=== PATIENT | female | born 1965 | race Caucasian/White ===

== ENCOUNTER → 2016-08-11 | Outpatient (REF) | payer BC ==
[2016-08-11 13:25] LABS: FREE T4 0.88 NG/DL (0.76-1.46)
[2016-08-12 09:52] LABS: THYROID PEROXIDASE ANTIBODY < 28.0 U/ML (<60.0)
== END ==
LOC: M LAB REF 12:21
PROVIDERS: ATTEND Dermatology
DX: Z01.84 Encounter for antibody response examination (principal)

== ENCOUNTER → 2017-06-06 | Outpatient (CLI) | payer BC | LOC: M RAD 12:56 | DX: Z12.31 Encounter for screening mammogram for malignant neoplasm of breast (principal) | CPT/HCPCS: 77067 ==

== ENCOUNTER 2017-11-04 11:04 | Emergency (ER) | payer BC ==
[2017-11-04] MEDS: predniSONE 20 MG TAB PO (11:47)
[2017-11-04 11:50] LABS: APPEARANCE, URINE HAZY (CLEAR); BACTERIA, URINE AUTO 1+ (NEGATIVE); BILIRUBIN, URINE AUTO NEGATIVE (NEGATIVE); BLOOD, URINE BLOOD NEGATIVE (NEGATIVE); COLOR, URINE YELLOW (YELLOW); GLUCOSE, URINE (UA) AUTO NEGATIVE (NEGATIVE); KETONE, URINE AUTO TRACE mg/dL (NEGATIVE); LEUKOCYTE ESTERASE, URINE AUTO NEGATIVE (NEGATIVE); MUCUS, URINE SMALL (NEGATIVE); NITRITE, URINE AUTO NEGATIVE (NEGATIVE); PROTEIN, URINE AUTO NEGATIVE (NEGATIVE); RBC, URINE AUTO 1 /HPF (0-3); SPECIFIC GRAVITY URINE AUTO 1.017 (1.002-1.035); SQUAMOUS EPITHELIAL CELL UR AU 3 /HPF (0-6); UROBILINOGEN, URINE AUTO 0.2 mg/dL (0.0-2.0); WBC, URINE AUTO 2 /HPF (0-3)
== END 2017-11-04 12:06 | disposition home or self-care (01) ==
LOC: M ED 11:04
DX: M54.5 Low back pain (principal)
CPT/HCPCS: 81001

== ENCOUNTER → 2018-01-19 | Outpatient (CLI) | payer BC | LOC: M RAD 17:49 | DX: M75.42 Impingement syndrome of left shoulder (principal) | CPT/HCPCS: 73221 ==

== ENCOUNTER → 2019-02-08 | Outpatient (CLI) | payer BC ==
[~2019-02-08] MED LIST: CYCL10TA PO; NAPR-885; PRED20TA PO
[2019-02-08 11:47] LABS: BASO % 0.4 % (0.0-1.0); EOS # 0.1 10^3/uL (0.0-0.5); EOS % 1.1 % (0.0-3.0); HEMATOCRIT 41.2 % (36.0-47.0); HEMOGLOBIN 13.7 g/dl (12.0-15.5); LYMPH # 1.6 10^3/uL (1.5-5.0); LYMPH % 30.9 % (24.0-44.0); MEAN CORPUSCULAR HEMOGLOBIN 33.1 pg (27.0-33.0); MEAN CORPUSCULAR HGB CONC 33.3 g/dl (32.0-36.5); MEAN CORPUSCULAR VOLUME 99.5 fl (80.0-96.0); MONO # 0.4 10^3/uL (0.0-0.8); MONO % 7.3 % (0.0-5.0); NEUTROPHILS # 3.2 10^3/uL (1.5-8.5); NEUTROPHILS % 60.1 % (36.0-66.0); PLATELET COUNT, AUTOMATED 242 10^3/uL (150-450); RED BLOOD COUNT 4.14 10^6/uL (4.00-5.40); WHITE BLOOD COUNT 5.3 10^3/uL (4.0-10.0)
[2019-02-08 12:32] LABS: ALBUMIN 4.1 GM/DL (3.2-5.2); ALT/SGPT 25 U/L (12-78); BILIRUBIN,TOTAL 0.6 MG/DL (0.2-1.0); BLOOD UREA NITROGEN 10 MG/DL (7-18); CALCIUM LEVEL 9.2 MG/DL (8.5-10.1); CARBON DIOXIDE LEVEL 25 MEQ/L (21-32); CHLORIDE LEVEL 101 MEQ/L (98-107); CHOLESTEROL LEVEL 248 MG/DL (<200); CHOLESTEROL RISK RATIO 1.893 (<5); CREATININE FOR GFR 0.74 MG/DL (0.55-1.30); GLOMERULAR FILTRATION RATE > 60.0 (>51); GLUCOSE, FASTING 84 MG/DL (70-100); HDL CHOLESTEROL 131 MG/DL (>40); LDL CHOLESTEROL 105 MG/DL (<100); NON-HDL-C 117 MG/DL; POTASSIUM SERUM 4.6 MEQ/L (3.5-5.1); SODIUM LEVEL 136 MEQ/L (136-145); TOTAL 25(OH) VITAMIN D 36.4 NG/ML (30.0-100.0); TOTAL PROTEIN 6.6 GM/DL (6.4-8.2); TRIGLYCERIDES LEVEL 60 MG/DL (<150)
== END ==
LOC: M LAB 10:50
PROVIDERS: ATTEND Family Medicine
DX: Z13.220 Encounter for screening for lipoid disorders (principal); Z13.21 Encounter for screening for nutritional disorder; Z12.11 Encounter for screening for malignant neoplasm of colon; Z80.0 Family history of malignant neoplasm of digestive organs

== ENCOUNTER → 2019-04-08 | Outpatient (CLI) | payer BC ==
--- NOTE | 2019-04-08 16:11 | REPMRS ---
Patient History The patient states she has not had a clinical breast exam in over a year. No known family history of cancer. Digital Mammo Screening Bilat: April 08, 2019 - Exam #: [id number] Bilateral CC and MLO view(s) were taken. Technologist: Amy Brown, Technologist Prior study comparison: June 06, 2017, bilateral digital mammo screening bilat performed at [facility]. February 03, 2015, bilateral digital mammo screening bilat performed at [facility]. February 02, 2011, digital bilateral screening mammo performed at [facility]. FINDINGS: The breast tissue is heterogeneously dense. This may lower the sensitivity of mammography. There is a moderate amount of heterogeneously dense fibroglandular tissue which is fairly symmetric. There is no interval development of dominant mass, architectural distortion, or grouped microcalcification typical of malignancy. There has been no change in the appearance of the mammogram from the prior studies. 3-D tomosynthesis shows no additional findings. Assessment: BI-RADS/ACR category 1 mammogram. Negative Mammogram. Recommendation Routine screening mammogram of both breasts in 1 year (for women over age 40). This patient's Lifetime Breast Cancer RIsk is estimated at 8.9 %. This mammogram was interpreted with the aid of an FDA-approved computer-aided dectection system. Electronically Signed By: Lamine Alan MD 04/08/19 [id number]
== END ==
LOC: M RAD 13:57
PROVIDERS: ATTEND Family Medicine
DX: Z12.31 Encounter for screening mammogram for malignant neoplasm of breast (principal)

== ENCOUNTER 2021-01-09 06:43 | Inpatient (IN) | payer BC ==
[~2021-01-09] VITALS: Ht 157.5 cm; Wt 67.3 kg
[~2021-01-09 06:43] MED LIST changes: +CYCL-707 PO; -CYCL10TA PO
[2021-01-09] MEDS ORDERED: DOXY-350 PO (06:50)
[2021-01-09] MEDS ORDERED: methylPREDNISolone 125MG 2ML VIAL IV ONE (09:20)
[2021-01-09] MEDS ORDERED: AMPICILLIN SOD/SULBACTAM SOD 3 GM in D5W MINI-BAG PLUS 100 ML IV ONE (09:40)
[2021-01-09 09:55] LABS: BASO % 0.3 % (0.0-1.0); EOS % 0.5 % (0.0-3.0); HEMOGLOBIN 14.8 g/dl (12.0-15.5); LYMPH # 1.2 10^3/uL (1.5-5.0); LYMPH % 19.6 % (24.0-44.0); MEAN CORPUSCULAR HEMOGLOBIN 32.5 pg (27.0-33.0); MEAN CORPUSCULAR HGB CONC 33.6 g/dl (32.0-36.5); MEAN CORPUSCULAR VOLUME 96.7 fl (80.0-96.0); MONO # 0.4 10^3/uL (0.0-0.8); MONO % 7.2 % (2.0-8.0); NEUTROPHILS # 4.3 10^3/uL (1.5-8.5); NEUTROPHILS % 71.9 % (36.0-66.0); PLATELET COUNT, AUTOMATED 286 10^3/uL (150-450); RED BLOOD COUNT 4.55 10^6/uL (4.00-5.40)
[2021-01-09] MEDS ORDERED: ISOVUE-370 76% 100ML VIAL As Ordered ONE (10:05)
[2021-01-09 10:19] LABS: RHEUMATOID FACTOR QUANT < 10.0 IU/ML (<15.0)
[2021-01-09 10:23] LABS: ERYTHROCYTE SEDIMENTATION RATE 14 mm/hr (0-30)
--- NOTE | 2021-01-09 10:50 | REP ---
INDICATION: L outter ear redness/swelling, redness L side neck. COMPARISON: None. TECHNIQUE: Helical scanning is acquired following the intravenous injection of 75 mL of Isovue 370. 3 mm axial images re-formatted. Coronal and sagittal MPR images are generated. FINDINGS: The visualized intracranial structures are unremarkable. No intraorbital abnormality is appreciated. There is diffuse thickening of the left ear cartilage consistent with chondritis. The external auditory canal appears patent. the middle ear the middle ear cavity is aerated. No petrous bone abnormality is seen on either side. There is no evidence of mastoid air cell opacification to suggest mastoiditis. The other visualized paranasal sinuses are clear. No abscess is appreciated. There is a normal-sized superior preauricular lymph node at the superior margin of the left parotid gland. No abnormal fluid collection is seen. There is some mild subcutaneous and dermal edema in the infra-auricular and retroauricular soft tissues. Submandibular glands are normal and symmetric. The right parotid gland is unremarkable. Glottic and subglottic airway are unremarkable. Epiglottis is normal in appearance. Thyroid lobes are normal and symmetric. The lung apices are clear. No vascular abnormality is appreciated. No bony destructive lesion is seen. IMPRESSION: Diffuse swelling of the auricular cartilage on the left consistent with chondritis. No abscess seen. Question small reactive pre-auricular lymph node. No evidence of mastoiditis. <Electronically signed by Lamine Alan > 01/09/21 [id number]
[2021-01-09 11:40] LABS: RSV AMPLIFICATION NEGATIVE (NEGATIVE)
[2021-01-09] MEDS ORDERED: IBUP200T45 PO (12:52)
[2021-01-09] MEDS ORDERED: HOME MED LIST COMPLETE! XX SCH (12:55)
[2021-01-09] MEDS ORDERED: ACETAMINOPHEN TAB 650MG DOSE (2X325MG) PO PRN (13:25)
[2021-01-09] MEDS ORDERED: NS 1,000 ML IV ONE (13:25)
[2021-01-09] MEDS: KETOROLAC 30 MG/ML 1ML VIAL IV SCH ×2 (14:28→20:16)
[2021-01-09] MEDS ORDERED: SENOKOT S TAB PO PRN (14:50)
[2021-01-09] MEDS ORDERED: PERCOCET 5MG/325MG TAB PO PRN ×2 (14:50)
[2021-01-09] MEDS ORDERED: MOM 30ML SUSPENSION UDC PO PRN (14:50)
[2021-01-09] MEDS ORDERED: MORPHINE 4 MG/ML 1ML VIAL/SYRINGE (J2270) IV PRN (14:50)
[2021-01-09 16:13] VITALS: BP 137/78
[2021-01-09] MEDS: NS 1,000 ML IV SCH ×2 (17:59→23:25)
[2021-01-09] MEDS: AMPICILLIN SOD/SULBACTAM SOD 3 GM in D5W MINI-BAG PLUS 100 ML IV SCH ×2 (18:00→21:39)
[2021-01-09] MEDS: methylPREDNISolone 125MG 2ML VIAL IV SCH (18:01)
--- NOTE | 2021-01-09 18:31 | HPEPDOC ---
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 She had complained of pruritus in the left ear and had been scratching this, and has been using her colleagues [employer] without cleaning the ear tips. When she awakened on morning her left ear was swollen like "a cauliflower, 'with pain redness along the left side of her jaw into the left side of the neck without purulent drainage, fever, hoarse voice, dysphagia, dyne aphasia. She self medicated with doxycycline but has not seen a significant improvement. Patient presented to the emergency room minor treatment today for evaluation. She was afebrile, without leukocytosis, bandemia, chills. CT of the neck shows left auricular cartilage consistent with chondritis without mastoiditis. Hospitalist was asked to admit the patient for left otitis externa, chondritis, and left facial cellulitis. 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 Denies recreational drug use or tobacco use Has 1-2 alcoholic drinks nightly FAMILY HISTORY: Noncontributory ALLERGIES: Please see below. REVIEW OF SYSTEMS: 10 point system negative aside from positive findings on HPI HOME MEDICATIONS: Please see below. PHYSICAL EXAMINATION: VITAL SIGNS: See below GENERAL APPEARANCE: No distress HEENT: Left pinna cartilage erythematous with edema and tenderness with erythematous streak along the left side of the face mandible and left neck No stridor, pain of the left ear when lifted. Tympanic membrane clear. Moist mucous membranes CARDIOVASCULAR: S1-S2 regular rate rhythm LUNGS: Clear to auscultation no wheezing rales or rhonchi ABDOMEN: Positive bowel sounds soft nontender nondistended no rebound or guarding EXTREMITIES: No cyanosis clubbing or pitting edema LABORATORY DATA: See below. IMAGING: See below MICROBIOLOGY: Please see below. 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 She had complained of pruritus in the left ear and had been scratching this, and has been using her colleagues [employer] without cleaning the ear tips. When she awakened on morning her left ear was swollen like "a cauliflower, 'with pain redness along the left side of her jaw into the left side of the neck without purulent drainage, fever, hoarse voice, dysphagia, dyne aphasia. She self medicated with doxycycline but has not seen a significant improvement. Patient presented to the emergency room minor treatment today for evaluation. She was afebrile, without leukocytosis, bandemia, chills. CT of the neck shows left auricular cartilage consistent with chondritis without mastoiditis. Hospitalist was asked to admit the patient for left otitis externa, chondritis, and left facial cellulitis. Left otitis externa, chondritis, left neck and facial cellulitis -Continue IV Unasyn, steroids -As needed pain medications, anti-inflammatories, antiemetics as needed -Bowel regimen as needed for constipation due to opioids -Ciprodex otic solution twice daily -ENT consulted Diet: 2 g sodium DVT prophylaxis: Compression stockings Disposition: Discharge in 1 to 2 days Vital Signs Vital Signs Date Time Temp Pulse Resp B/P (MAP) Pulse Ox O2 Delivery O2 Flow Rate FiO2 01/09/21 16:13 97.5 67 18 137/78 (97) 99 Room Air Laboratory Data Labs 24H Laboratory Tests 2 01/09/21 09:27: Immature Granulocyte % (Auto) 0.5, Neutrophils (%) (Auto) 71.9H, Lymphocytes (%) (Auto) 19.6L, Monocytes (%) (Auto) 7.2, Eosinophils (%) (Auto) 0.5, Basophils (%) (Auto) 0.3, Neutrophils # (Auto) 4.3, Lymphocytes # (Auto) 1.2L, Monocytes # (Auto) 0.4, Eosinophils # (Auto) 0.0, Basophils # (Auto) 0.0, Nucleated Red Blood Cells % (auto) 0.0, Erythrocyte Sedimentation Rate 14, C-Reactive Protein, Quantitative 0.60H, Rheumatoid Factor < 10.0 01/09/21 09:30: POC Glucose (Misc Panel) 110H, POC Sodium (Misc Panel) 138, POC Potassium (Misc Panel) 4.4, POC Chloride (Misc Panel) 101, POC Total CO2 (Misc Panel) 30.0H, POC Blood Urea Nitrogen (Misc Panel 8, POC Ionized Calcium (Misc Panel) 5.0, POC Creatinine (Misc Panel) 0.7, POC Hematocrit (Misc Panel) 44.0 01/09/21 10:47: Coronavirus (COVID-19)(PCR) NEGATIVE, Influenza Type A (RT-PCR) NEGATIVE, Influenza Type B (RT-PCR) NEGATIVE, Respiratory Syncytial Virus (PCR) NEGATIVE CBC/BMP Laboratory Tests 01/09/21 09:27 Microbiology Microbiology 01/09/21 Blood Culture, Received Pending 01/09/21 Blood Culture, Received Pending Home Medications Scheduled Ibuprofen (Ibu-200) 200 Mg Tablet, 600 MG PO DAILY Allergies Coded Allergies: No Known Drug Allergies (Verified Allergy, Unknown, 01/09/21) A-FIB/CHADSVASC A-FIB History Current/History of A-Fib/PAF?: No Age/Risk Factor Scoring CHADSVASC: CHADSVASC Response (Comments) Value Age Risk Factor Age < 65 years old 0 Gender Risk Factor Female 1 Hx of CHF No 0 Hx of HTN No 0 Hx of Stroke/TIA/or VTE No 0 Hx of Diabetes No 0 Hx of Vascular Disease No 0 Total 1 Treatment Treatment ordered: NONE FELIPE RAMÍREZ MD Jan 09, 2021 18:31
[2021-01-09] MEDS: CIPRODEX OTIC SUSP 7.5ML AS SCH (20:16)
[2021-01-09 21:21] VITALS: BP 147/86
[2021-01-10] MEDS: methylPREDNISolone 125MG 2ML VIAL IV SCH ×3 (02:00→18:16)
[2021-01-10] MEDS: KETOROLAC 30 MG/ML 1ML VIAL IV SCH ×4 (02:01→20:38)
[2021-01-10] MEDS: AMPICILLIN SOD/SULBACTAM SOD 3 GM in D5W MINI-BAG PLUS 100 ML IV SCH ×4 (04:14→21:40)
[2021-01-10] MEDS: NS 1,000 ML IV SCH ×2 (04:14→16:16)
[2021-01-10 06:00] VITALS: BP 108/70
[2021-01-10 08:52] LABS: BASO % 0.1 % (0.0-1.0); HEMATOCRIT 42.1 % (36.0-47.0); HEMOGLOBIN 14.1 g/dl (12.0-15.5); LYMPH # 0.9 10^3/uL (1.5-5.0); LYMPH % 6.3 % (24.0-44.0); MEAN CORPUSCULAR HGB CONC 33.5 g/dl (32.0-36.5); MEAN CORPUSCULAR VOLUME 95.5 fl (80.0-96.0); MONO # 0.6 10^3/uL (0.0-0.8); MONO % 3.8 % (2.0-8.0); NEUTROPHILS % 89.3 % (36.0-66.0); PLATELET COUNT, AUTOMATED 308 10^3/uL (150-450); RED BLOOD COUNT 4.41 10^6/uL (4.00-5.40); WHITE BLOOD COUNT 14.5 10^3/uL (4.0-10.0)
[2021-01-10 09:11] LABS: ERYTHROCYTE SEDIMENTATION RATE 8 mm/hr (0-30)
[2021-01-10 09:12] LABS: BLOOD UREA NITROGEN 10 MG/DL (7-18); CALCIUM LEVEL 9.1 MG/DL (8.5-10.1); CARBON DIOXIDE LEVEL 26 MEQ/L (21-32); CHLORIDE LEVEL 106 MEQ/L (98-107); CREATININE FOR GFR 0.69 MG/DL (0.55-1.30); GLOMERULAR FILTRATION RATE > 60.0 (>51); GLUCOSE, FASTING 137 MG/DL (70-100); POTASSIUM SERUM 4.1 MEQ/L (3.5-5.1); SODIUM LEVEL 139 MEQ/L (136-145)
[2021-01-10] MEDS: CIPRODEX OTIC SUSP 7.5ML AS SCH ×2 (09:21→20:38)
--- NOTE | 2021-01-10 09:32 | CR.PDOC ---
General Date of Consultation: Jan 10, 2021 Referring Provider: FELIPE RAMÍREZ MD Attending Physician: Honorio Boudreaux MD Consultation REASON FOR CONSULTATION/CHIEF COMPLAINT: Left ear swelling. 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 She is otherwise healthy. Last Monday she felt some cold-like symptoms and left-sided adenopathy. She has had a longstanding issue with left ear itchiness and notices an area of crusty irritation periodically right at the opening to the ear canal. She feels she was scratching at this area prior to developing the swelling. By her ear had become swollen and tender. She had some redness extending into the jaw area. And a little bit down the neck. Hearing was not affected there was no drainage. She has had no previous episodes of ear swelling. She has no known autoimmune condition.. ALLERGIES: Please see below. HOME MEDICATIONS: Please see below. PAST MEDICAL HISTORY: 1. None 2. . PAST SURGICAL HISTORY: 1. Knee 2. 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 HEENT: . CARDIOVASCULAR: . RESPIRATORY: . GENITOURINARY: . MUSCULOSKELETAL: . GASTROINTESTINAL: . SKIN: . NEUROLOGICAL: . PSYCHIATRIC: . ENDOCRINE: . HEMATOLOGIC/LYMPHATIC: . ALLERGIC/IMMUNOLOGIC: . PHYSICAL EXAMINATION: VITAL SIGNS: Please see below. GENERAL APPEARANCE: Alert oriented in no obvious distress. HEENT: Face and scalp appeared normal. Eyes were normal. Examination of the right ear was normal. Ear canal and tympanic membrane normal. Examination of the left ear revealed mild swelling over the cartilaginous portion of the auricle. Ear canal and tympanic membrane were completely normal. There was no discharge. Examination of the nose showed no abnormality externally. Nasal septum appears normal turbinates were not enlarged. Lips teeth and gums were normal. Tongue floor mouth posterior pharyngeal wall clear. Tonsils have been removed. Palpation of the neck reveals no significant adenopathy at this point.. RESPIRATORY: . CARDIOVASCULAR: . ABDOMEN: . EXTREMITIES: . NEUROLOGICAL: . PSYCHIATRIC: . LABORATORY DATA: Please see below. ASSESSMENT/PLAN: 1. I think Kelly most likely had an infectious cause for her ear canal swelling. I suspect that the dose of doxycycline was insufficient or incorrect for the bacterial infection. She has responded nicely to IV antibiotics and probably can go home today. I suspect the increased white count today versus yesterday secondary to the steroids. Also in the differential would be autoimmune perichondritis. If she fails to respond to recurs then she will need a rheumatology consult. We have encouraged her to refrain from scratching the ear and suggested some topical steroids if this is itchy which she could use 1-3 times a week. 2. . Vital Signs/I&O Vital Signs Date Time Temp Pulse Resp B/P (MAP) Pulse Ox O2 Delivery O2 Flow Rate FiO2 01/10/21 06:00 97.8 64 14 108/70 (83) 96 Room Air I&O- Last 24 Hours up to 6 AM 01/10/21 05:59 Intake Total 2710 ml Output Total 650 ml Balance 2060 ml Laboratory Data Labs 24H Laboratory Tests 2 01/09/21 09:27: Immature Granulocyte % (Auto) 0.5, Neutrophils (%) (Auto) 71.9H, Lymphocytes (%) (Auto) 19.6L, Monocytes (%) (Auto) 7.2, Eosinophils (%) (Auto) 0.5, Basophils (%) (Auto) 0.3, Neutrophils # (Auto) 4.3, Lymphocytes # (Auto) 1.2L, Monocytes # (Auto) 0.4, Eosinophils # (Auto) 0.0, Basophils # (Auto) 0.0, Nucleated Red Blood Cells % (auto) 0.0, Erythrocyte Sedimentation Rate 14, C-Reactive Protein, Quantitative 0.60H, Rheumatoid Factor < 10.0 01/09/21 09:30: POC Glucose (Misc Panel) 110H, POC Sodium (Misc Panel) 138, POC Potassium (Misc Panel) 4.4, POC Chloride (Misc Panel) 101, POC Total CO2 (Misc Panel) 30.0H, POC Blood Urea Nitrogen (Misc Panel 8, POC Ionized Calcium (Misc Panel) 5.0, POC Creatinine (Misc Panel) 0.7, POC Hematocrit (Misc Panel) 44.0 01/09/21 10:47: Coronavirus (COVID-19)(PCR) NEGATIVE, Influenza Type A (RT-PCR) NEGATIVE, Influenza Type B (RT-PCR) NEGATIVE, Respiratory Syncytial Virus (PCR) NEGATIVE 01/10/21 08:32: Immature Granulocyte % (Auto) 0.5, Neutrophils (%) (Auto) 89.3H, Lymphocytes (%) (Auto) 6.3L, Monocytes (%) (Auto) 3.8, Eosinophils (%) (Auto) 0.0, Basophils (%) (Auto) 0.1, Neutrophils # (Auto) 13.0H, Lymphocytes # (Auto) 0.9L, Monocytes # (Auto) 0.6, Eosinophils # (Auto) 0.0, Basophils # (Auto) 0.0, Nucleated Red Blood Cells % (auto) 0.0, Erythrocyte Sedimentation Rate 8, C-Reactive Protein, Quantitative 0.30, Anion Gap 7L, Glomerular Filtration Rate > 60.0, Calcium Level 9.1 CBC/BMP Laboratory Tests 01/09/21 09:27 01/10/21 08:32 Microbiology Microbiology 01/09/21 Blood Culture, Received Pending 01/09/21 Blood Culture, Received Pending Allergies Coded Allergies: No Known Drug Allergies (Verified Allergy, Unknown, 01/09/21) Home Medications Scheduled Ibuprofen (Ibu-200) 200 Mg Tablet, 600 MG PO DAILY, (Reported) Honorio Boudreaux MD Jan 10, 2021 09:32
--- NOTE | 2021-01-10 12:13 | IPNPDOC ---
Date Seen The patient was seen on 01/10/21. Progress Note SUBJECTIVE: decreased left ear canal pruritus on ciprodex. no f/c overnight. denies ear pain, hearing loss, vertigo. left neck LAD smaller w/o stridor, dysphagia, or odynophagia. "I feel a little better." PHYSICAL EXAMINATION: VITAL SIGNS: See below GENERAL APPEARANCE: No distress aaox 3 no cyanosis or pallor HEENT: no carotid bruits. EOMI Left pinna cartilage erythematous with edema and tenderness with less erythematous streak along the left side of the face mandible and left neck. cervical LAD left smaller today No stridor, pain of the left ear when lifted. Tympanic membrane clear. Moist mucous membranes CARDIOVASCULAR: S1-S2 regular rate rhythm LUNGS: Clear to auscultation no wheezing rales or rhonchi ABDOMEN: Positive bowel sounds soft nontender nondistended no rebound or guard ing EXTREMITIES: No cyanosis clubbing or pitting edema LABORATORY DATA: See below. IMAGING: See below MICROBIOLOGY: Please see below. 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 She had complained of pruritus in the left ear and had been scratching this, and has been using her colleagues [employer] without cleaning the ear tips. When she awakened on morning her left ear was swollen like "a cauliflower, 'with pain redness along the left side of her jaw into the left side of the neck without purulent drainage, fever, hoarse voice, dysphagia, dyne aphasia. She self medicated with doxycycline but has not seen a significant improvement. Patient presented to the emergency room minor treatment today for evaluation. She was afebrile, without leukocytosis, bandemia, chills. CT of the neck shows left auricular cartilage consistent with chondritis without mastoiditis. Hospitalist was asked to admit the patient for left otitis ex terna, chondritis, and left facial cellulitis. Left otitis externa, chondritis, left neck and facial cellulitis -Continue IV Unasyn, steroids -As needed pain medications, anti-inflammatories, antiemetics as needed -Bowel regimen as needed for constipation due to opioids -Ciprodex otic solution twice daily -ENT consulted Diet: 2 g sodium DVT prophylaxis: Compression stockings Disposition: Discharge in am VS, I&O, 24H, Fishbone Vital Signs/I&O Vital Signs Date Time Temp Pulse Resp B/P (MAP) Pulse Ox O2 Delivery O2 Flow Rate FiO2 01/10/21 06:00 97.8 64 14 108/70 (83) 96 Room Air I&O- Last 24 Hours up to 6 AM 01/10/21 06:00 Intake Total 3610 ml Output Total 1100 ml Balance 2510 ml Laboratory Data 24H LABS Laboratory Tests 2 01/10/21 08:32: Immature Granulocyte % (Auto) 0.5, Neutrophils (%) (Auto) 89.3H, Lymphocytes (%) (Auto) 6.3L, Monocytes (%) (Auto) 3.8, Eosinophils (%) (Auto) 0.0, Basophils (%) (Auto) 0.1, Neutrophils # (Auto) 13.0H, Lymphocytes # (Auto) 0.9L, Monocytes # (Auto) 0.6, Eosinophils # (Auto) 0.0, Basophils # (Auto) 0.0, Nucleated Red Blood Cells % (auto) 0.0, Erythrocyte Sedimentation Rate 8, Anion Gap 7L, Glomerular Filtration Rate > 60.0, Calcium Level 9.1, C-Reactive Protein, Quantitative 0.30 CBC/BMP Laboratory Tests 01/10/21 08:32 Microbiology Microbiology 01/09/21 Blood Culture - Preliminary, Resulted No growth after 24 hours . All specim... 01/09/21 Blood Culture - Preliminary, Resulted No growth after 24 hours . All specim... FELIPE RAMÍREZ MD Jan 10, 2021 12:13
[2021-01-10 14:00] VITALS: BP 121/78
[2021-01-10 22:00] VITALS: BP 127/81
[2021-01-11] MEDS: methylPREDNISolone 125MG 2ML VIAL IV SCH ×2 (01:41→08:41)
[2021-01-11] MEDS: KETOROLAC 30 MG/ML 1ML VIAL IV SCH ×3 (01:41→14:18)
[2021-01-11] MEDS: NS 1,000 ML IV SCH (03:12)
[2021-01-11] MEDS: AMPICILLIN SOD/SULBACTAM SOD 3 GM in D5W MINI-BAG PLUS 100 ML IV SCH ×3 (03:12→15:08)
[2021-01-11] MEDS ORDERED: CIPR7.5D2 AS (05:14)
[2021-01-11] MEDS ORDERED: AUGM875T28 PO (05:14)
[2021-01-11 06:00] VITALS: BP 120/75
[2021-01-11] MEDS: CIPRODEX OTIC SUSP 7.5ML AS SCH (09:20)
--- NOTE | 2021-01-11 10:08 | DSES ---
DISCHARGE SUMMARY DATE OF ADMISSION: 01/09/2021 DATE OF DISCHARGE: 01/11/2021 FA[employer] SALES ASSISTANT: Dr. Honorio Boudreaux, ENT surgeon PRIMARY DISCHARGE DIAGNOSIS: 1. Left ear otitis externa. 2. Left ear chondritis. 3. Left face and neck cellulitis. DISCHARGE MEDICATIONS: 1. Augmentin 875 p.o. b.i.d. 2. Ciprodex four drops b.i.d. for five days. 3. Ibuprofen 800 as needed for pain. DISCHARGE INSTRUCTIONS: Follow-up with Dr. Siddiqui and primary care physician within five days of hospital discharge. HOSPITAL COURSE: This is a 56-year-old female with no past medical history aside from knee and shoulder surgery who presented to the Emergency Room with cold symptoms, left sided cervical lymphadenopathy accompanied with chills and pruritus in the left ear with subsequent erythema, tenderness and swelling without purulent drainage, hoarse voice, aphasia, or odynophagia. Patient self-medicated with Doxycycline without improvement. She was afebrile without leukocytosis or bandemia. On admission, CT of the neck shows left auricular cartilage chondritis without mastoiditis. Clinically, patient has some erythema and edema of the left ear, admitted for left otitis externa, left ear chondritis, left facial and neck cellulitis. She was given IV Unasyn, Solu-Medrol and bowel regimen, IV Toradol and IV fluids with resultant improvement. She was seen by Dr. Boudreaux. ULISES was sent to rule out rheumatologic disease and that is still pending. Patient is discharged in stable condition. PHYSICAL EXAMINATION ON DISCHARGE: VITAL SIGNS: Temperature is 97.6, pulse is 61, respiratory rate is 16, blood pressure is 120/75. She is 95% on room air. GENERAL: Generally, awake, alert and oriented, in no distress. HEENT: Patient has significant improvement in the erythema, swelling and tenderness of the left pinna. Diminished swelling in the cartilaginous portion of the auricle. Ear canal and tympanic membrane were normal without discharge. Nose had no abnormality. Nasal septum was normal with nasal turbinates not enlarged. No lymphadenopathy. The erythema along the neck and face are significantly improved. LABORATORY DATA/IMAGING STUDIES/MICROBIOLOGY: Please see the chart. TIME SPENT ON DISCHARGE: 30 minutes
[2021-01-11 14:00] VITALS: BP 145/79
[2021-01-12 13:10] LABS: ANTINUCLEAR ANTIBODIES DIRECT Negative (Negative)
== END 2021-01-11 16:15 | disposition home or self-care (01) | DRG 383 ==
LOC: M ED 06:43 → M ED INP 13:21 → ENRESERV 15:19 → M MSPAV 16:13
PROVIDERS: ADMIT General Practice; ATTEND General Practice
DX: L03.211 Cellulitis of face (principal); L03.221 Cellulitis of neck; H60.392 Other infective otitis externa, left ear; H61.032 Chondritis of left external ear

== ENCOUNTER → 2021-05-18 | Outpatient (REF) | payer BC ==
[~2021-05-18] MED LIST changes: +AUGM875T28 PO; +CIPR7.5D2 AS; +DOXY-350 PO; +IBUP200T46 PO
[2021-05-18 13:27] LABS: ALBUMIN 4.3 GM/DL (3.2-5.2); ALT/SGPT 26 U/L (12-78); BILIRUBIN,TOTAL 0.9 MG/DL (0.2-1.0); BLOOD UREA NITROGEN 10 MG/DL (7-18); CALCIUM LEVEL 9.5 MG/DL (8.5-10.1); CARBON DIOXIDE LEVEL 26 MEQ/L (21-32); CHLORIDE LEVEL 103 MEQ/L (98-107); CHOLESTEROL LEVEL 273 MG/DL (<200); CHOLESTEROL RISK RATIO 1.978 (<5); CREATININE FOR GFR 0.72 MG/DL (0.55-1.30); GLOMERULAR FILTRATION RATE > 60.0 (>51); GLUCOSE, FASTING 87 MG/DL (70-100); HDL CHOLESTEROL 138 MG/DL (>40); LDL CHOLESTEROL 125 MG/DL (<100); NON-HDL-C 135 MG/DL; POTASSIUM SERUM 4.4 MEQ/L (3.5-5.1); SODIUM LEVEL 135 MEQ/L (136-145); TOTAL 25(OH) VITAMIN D 12.6 NG/ML (30.0-100.0); TRIGLYCERIDES LEVEL 50 MG/DL (<150)
== END ==
LOC: M SFHCADAM 11:31
PROVIDERS: ATTEND Physician Assistant Medical
DX: Z00.00 Encounter for general adult medical examination without abnormal findings (principal); Z13.220 Encounter for screening for lipoid disorders; Z13.0 Encounter for screening for diseases of the blood and blood-forming organs and certain disorders involving the immune mechanism

== ENCOUNTER → 2021-08-06 | Outpatient (CLI) | payer BC | LOC: M WHC 11:02 | PROVIDERS: ATTEND Physician Assistant Medical | DX: Z12.31 Encounter for screening mammogram for malignant neoplasm of breast (principal) ==

== ENCOUNTER → 2022-09-08 | Outpatient (REF) | payer BC ==
[~2022-09-08] MED LIST changes: -DOXY-350 PO; +DOXY-444 PO
== END ==
LOC: M SFHCWAGY 15:18
PROVIDERS: ATTEND Nurse Practitioner Family
DX: Z12.4 Encounter for screening for malignant neoplasm of cervix (principal); R87.610 Atypical squamous cells of undetermined significance on cytologic smear of cervix (ASC-US)
CPT/HCPCS: 87624; G0123

== ENCOUNTER → 2022-09-08 | Outpatient (CLI) | payer BC | LOC: M WHC 13:01 | PROVIDERS: ATTEND Nurse Practitioner Family | DX: Z12.31 Encounter for screening mammogram for malignant neoplasm of breast (principal) ==

== ENCOUNTER → 2023-06-12 | Outpatient (REF) | payer BC ==
[2023-06-12 13:45] LABS: BASO % 0.3 % (0.0-1.0); EOS % 0.5 % (0.0-3.0); HEMATOCRIT 42.4 % (36.0-47.0); HEMOGLOBIN 14.2 g/dl (12.0-15.5); LYMPH # 1.8 10^3/uL (1.5-5.0); LYMPH % 23.9 % (24.0-44.0); MEAN CORPUSCULAR HEMOGLOBIN 33.3 pg (27.0-33.0); MEAN CORPUSCULAR HGB CONC 33.5 g/dl (32.0-36.5); MEAN CORPUSCULAR VOLUME 99.5 fl (80.0-96.0); MONO # 0.6 10^3/uL (0.0-0.8); MONO % 7.3 % (2.0-8.0); NEUTROPHILS # 5.1 10^3/uL (1.5-8.5); NEUTROPHILS % 67.6 % (36.0-66.0); PLATELET COUNT, AUTOMATED 318 10^3/uL (150-450); RED BLOOD COUNT 4.26 10^6/uL (4.00-5.40); WHITE BLOOD COUNT 7.6 10^3/uL (4.0-10.0)
[2023-06-12 13:51] LABS: ALKALINE PHOSPHATASE 67 U/L (46-116); ALT/SGPT 45 U/L (7.0-40); AST/SGOT 23 U/L (<34); BILIRUBIN,TOTAL 0.5 MG/DL (0.3-1.2); BLOOD UREA NITROGEN 12 MG/DL (9-23); CALCIUM LEVEL 9.2 MG/DL (8.5-10.1); CARBON DIOXIDE LEVEL 31 MMOL/L (20-31); CHLORIDE LEVEL 104 MMOL/L (98-107); CHOLESTEROL LEVEL 265 MG/DL (<200); CHOLESTEROL RISK RATIO 2.33 (<5); CREATININE FOR GFR 0.72 MG/DL (0.55-1.30); GLOMERULAR FILTRATION RATE > 60.0 (>51); GLUCOSE, FASTING 99 MG/DL (60-100); HDL CHOLESTEROL 113.4 MG/DL (>40); NON-HDL-C 151.6 MG/DL; POTASSIUM SERUM 4.3 MMOL/L (3.5-5.1); SODIUM LEVEL 140 MMOL/L (136-145); TOTAL PROTEIN 6.6 G/DL (5.7-8.2); TRIGLYCERIDES LEVEL 68 MG/DL (<150)
[2023-06-12 13:54] LABS: THYROID STIMULATING HORMONE 2.088 uIU/ML (0.55-4.78); TOTAL 25(OH) VITAMIN D 42.2 NG/ML (20.0-100.0)
== END ==
LOC: M SFHCADAM 09:33
PROVIDERS: ATTEND Physician Assistant Medical
DX: Z00.00 Encounter for general adult medical examination without abnormal findings (principal); N95.1 Menopausal and female climacteric states; Z13.220 Encounter for screening for lipoid disorders; Z13.0 Encounter for screening for diseases of the blood and blood-forming organs and certain disorders involving the immune mechanism; E55.9 Vitamin D deficiency, unspecified

== ENCOUNTER → 2023-09-12 | Outpatient (CLI) | payer BC ==
[~2023-09-12] MED LIST changes: +DOXY-440 PO; -DOXY-444 PO
== END ==
LOC: M WHC 14:12
PROVIDERS: ATTEND Nurse Practitioner Family
DX: Z12.31 Encounter for screening mammogram for malignant neoplasm of breast (principal); R92.333 Mammographic heterogeneous density, bilateral breasts

== ENCOUNTER → 2023-12-20 | Outpatient (CLI) | payer BC | LOC: M ADAMS 13:50 | PROVIDERS: ATTEND Physician Assistant Medical | DX: R91.1 Solitary pulmonary nodule (principal) ==

== ENCOUNTER → 2024-03-12 | Outpatient (REF) | payer BC ==
[2024-03-12 17:40] LABS: APPEARANCE, URINE CLEAR (CLEAR); BACTERIA, URINE AUTO NEGATIVE (NEGATIVE); BILIRUBIN, URINE AUTO NEGATIVE (NEGATIVE); BLOOD, URINE BLOOD NEGATIVE (NEGATIVE); COLOR, URINE YELLOW (YELLOW); GLUCOSE, URINE (UA) AUTO NEGATIVE (NEGATIVE); KETONE, URINE AUTO TRACE mg/dL (NEGATIVE); LEUKOCYTE ESTERASE, URINE AUTO NEGATIVE (NEGATIVE); NITRITE, URINE AUTO NEGATIVE (NEGATIVE); PROTEIN, URINE AUTO NEGATIVE (NEGATIVE); RBC, URINE AUTO 1 /HPF (0-3); SPECIFIC GRAVITY URINE AUTO 1.008 (1.002-1.035); SQUAMOUS EPITHELIAL CELL UR AU 0 /HPF (0-6); UROBILINOGEN, URINE AUTO 0.2 mg/dL (0.0-2.0); WBC, URINE AUTO 0 /HPF (0-3)
== END ==
LOC: M SFHCADAM 14:46
PROVIDERS: ATTEND Physician Assistant Medical
DX: Z01.818 Encounter for other preprocedural examination (principal)

== ENCOUNTER → 2024-03-22 | Outpatient (REF) | payer BC ==
[2024-03-22 19:11] LABS: HEMOGLOBIN 14.2 g/dl (12.0-15.5); MEAN CORPUSCULAR HEMOGLOBIN 31.3 pg (27.0-33.0); MEAN CORPUSCULAR VOLUME 94.9 fl (80.0-96.0); PLATELET COUNT, AUTOMATED 293 10^3/uL (150-450); RED BLOOD COUNT 4.53 10^6/uL (4.00-5.40); WHITE BLOOD COUNT 5.6 10^3/uL (4.0-10.0)
[2024-03-22 19:35] LABS: ALBUMIN 4.3 G/DL (3.2-5.2); ALKALINE PHOSPHATASE 60 U/L (35-104); ALT/SGPT 23 U/L (7.0-40); AST/SGOT 26 U/L (<34); BILIRUBIN,TOTAL 0.6 MG/DL (0.3-1.2); BLOOD UREA NITROGEN 12 MG/DL (9-23); CALCIUM LEVEL 10.3 MG/DL (8.3-10.6); CARBON DIOXIDE LEVEL 28 MMOL/L (20-31); CHLORIDE LEVEL 101 MMOL/L (98-107); CREATININE FOR GFR 0.72 MG/DL (0.55-1.30); GLOMERULAR FILTRATION RATE > 60.0 (>45); GLUCOSE, FASTING 92 MG/DL (74-106); POTASSIUM SERUM 4.3 MMOL/L (3.5-5.1); SODIUM LEVEL 135 MMOL/L (136-145); TOTAL PROTEIN 7.2 G/DL (5.7-8.2)
== END ==
LOC: M LABDRWAD 17:25
PROVIDERS: ATTEND Physician Assistant Surgical
DX: M75.51 Bursitis of right shoulder (principal); M75.101 Unspecified rotator cuff tear or rupture of right shoulder, not specified as traumatic; M75.21 Bicipital tendinitis, right shoulder

== ENCOUNTER → 2024-06-24 | Outpatient (REF) | payer BC ==
[2024-06-24 14:13] LABS: CHOLESTEROL RISK RATIO 2.45 (<5); HDL CHOLESTEROL 118.5 MG/DL (>40); LDL CHOLESTEROL 152.3 MG/DL (<100); NON-HDL-C 172.5 MG/DL
[2024-06-24 14:14] LABS: THYROID STIMULATING HORMONE 1.663 uIU/ML (0.55-4.78)
[2024-06-24 14:16] LABS: TOTAL 25(OH) VITAMIN D 41.9 NG/ML (20.0-100.0)
== END ==
LOC: M SFHCADAM 10:07
PROVIDERS: ATTEND Physician Assistant Medical
DX: Z00.00 Encounter for general adult medical examination without abnormal findings (principal); E55.9 Vitamin D deficiency, unspecified; Z13.220 Encounter for screening for lipoid disorders; Z13.0 Encounter for screening for diseases of the blood and blood-forming organs and certain disorders involving the immune mechanism

== ENCOUNTER → 2024-09-26 | Outpatient (REF) | payer BC ==
[2024-09-29 14:08] LABS: HPV APTIMA Not Detected (Not Detected)
== END ==
LOC: M SFHCWAGY 13:48
PROVIDERS: ATTEND Nurse Practitioner Family
DX: Z12.4 Encounter for screening for malignant neoplasm of cervix (principal)

== ENCOUNTER → 2024-09-26 | Outpatient (CLI) | payer BC | LOC: M WHC 11:40 | PROVIDERS: ATTEND Nurse Practitioner Family | DX: Z12.31 Encounter for screening mammogram for malignant neoplasm of breast (principal); R92.333 Mammographic heterogeneous density, bilateral breasts | CPT/HCPCS: 77063; 77067; 87624; G0123 ==

== ENCOUNTER → 2024-11-15 | Outpatient (CLI) | payer BC | LOC: M WHC 08:37 | PROVIDERS: ATTEND Physician Assistant | DX: N95.0 Postmenopausal bleeding (principal); R93.89 Abnormal findings on diagnostic imaging of other specified body structures ==